=== PATIENT | female | born 1970 | race Two or more races ===

== ENCOUNTER 2023-08-08 11:19 | Emergency (ER) | payer OTHER, BC ==
[2023-08-08 11:24] VITALS: BP 156/98; PULSE 100; RESP 18; TEMP 99.1; BMI 33.9
[2023-08-08] MEDS ORDERED: AMOX TR/POT CLAV 500MG/125MG TABLETS (FP) ONE (12:29)
[2023-08-08] MEDS ORDERED: AMOXICILLIN 250 MG CAPSULE ONE (12:30)
[2023-08-08] MEDS ORDERED: ACETAMINOPHEN 500 MG TABLET (FP) ONE (12:30)
[2023-08-08] MEDS: AMOXICILLIN 500 MG CAPSULE (FP) PO ONE (12:43)
[2023-08-08] MEDS: ACETAMINOPHEN 500 MG TABLET (FP) PO ONE (12:43)
== END 2023-08-08 13:03 | disposition home or self-care (01) ==
LOC: JERFT 11:19
DX: K08.89 Other specified disorders of teeth and supporting structures (principal)
CPT/HCPCS: 99283-25